=== PATIENT | female | born 1970 | race Caucasian/White ===

== ENCOUNTER 2020-12-10 10:11 | Emergency (ER) | payer OTHER ==
[~2020-12-10] VITALS: Ht 162.6 cm; Wt 113.6 kg
[2020-12-10 10:37] VITALS: BP 137/70
[2020-12-10 10:50] LABS: BASOPHILS % (AUTO) 0.3 % (0.0-2.0); EOSINOPHILS % (AUTO) 1.1 % (1.0-6.0); HEMATOCRIT 44.5 % (36-46); HEMOGLOBIN 14.9 g/dL (12.0-16.0); LYMPHOCYTES # (AUTO) 1.9 K/uL (1.0-4.8); LYMPHOCYTES % (AUTO) 20.3 % (22.0-44.0); MEAN CORPUSCULAR HEMOGLOBIN 28.5 pg (26.0-34.0); MEAN CORPUSCULAR HGB CONC 33.5 G/dL (31.0-37.0); MEAN CORPUSCULAR VOLUME 85 fL (80-100); MONOCYTES # (AUTO) 0.9 K/uL (0.1-1.0); MONOCYTES % (AUTO) 9.8 % (2.0-9.0); NEUTROPHILS # (AUTO) 6.3 K/uL (1.8-7.7); NEUTROPHILS % (AUTO) 68.5 % (40.0-70.0); PLATELET COUNT (AUTO) 246 K/uL (150-450); RED BLOOD CELL COUNT(AUTO) 5.23 MIL/uL (4.00-5.20); RED CELL DISTRIBUTION WIDTH 13.9 % (11.5-14.5)
[2020-12-10] MEDS ORDERED: LAMO100 PO (10:56)
[2020-12-10 11:07] LABS: ANION GAP 8 mmol/L (8-16); CALCIUM, TOTAL 9.2 mg/dL (8.8-10.5); CARBON DIOXIDE 29 mmol/L (22-29); CHLORIDE 104 mmol/L (98-107); CREATININE 0.91 mg/dL (0.60-1.30); GLOMERULAR FILTR. RATE CALC > 60 mL/min (>60); GLUCOSE,RANDOM 109 mg/dL (70-110); POTASSIUM 3.8 mmol/L (3.5-5.1); SODIUM SERUM 141 mmol/L (136-145); UREA NITROGEN, BLOOD 11 mg/dL (7-18)
[2020-12-10 11:19] LABS: B-TYPE NATRIURETIC PEPTIDE < 5 pg/mL (0-100)
[2020-12-10 11:20] LABS: ALANINE AMINOTRANSFERASE 36 U/L (12-78); ALBUMIN 4.2 g/dL (3.4-5.0); ALKALINE PHOSPHATASE 84 U/L (46-116); ASPARTATE AMINOTRANSFERASE 16 U/L (15-37); BILIRUBIN,TOTAL 0.4 mg/dL (0.1-1.0); CREATINE KINASE, TOTAL ONLY 53 U/L (26-192); HCG,QUANTITATIVE 1 mIU/mL (0-6); TOTAL PROTEIN, SERUM 7.8 g/dL (6.4-8.2)
[2020-12-10] MEDS ORDERED: ZIPR20CA2 PO (11:27)
== END 2020-12-10 12:24 | disposition home or self-care (01) ==
LOC: EMS 10:11
DX: F41.9 Anxiety disorder, unspecified (principal)
CPT/HCPCS: 71045; 80053; 80175; 82550; 83880; 84484; 84702; 85025; 93005; 99285; 36415-L1; 36415-TC

== ENCOUNTER 2021-01-02 13:50 | Emergency (ER) | payer OTHER ==
[~2021-01-02] VITALS: Ht 162.6 cm; Wt 114.0 kg
[~2021-01-02 13:50] MED LIST: LAMO100 PO; ZIPR20CA2 PO
[2021-01-02 14:57] VITALS: BP 138/84
[2021-01-02] MEDS ORDERED: LORazepam 1 MG TABLET PO ONE (15:15)
== END 2021-01-02 16:15 | disposition home or self-care (01) ==
LOC: EMS 13:52
DX: F41.9 Anxiety disorder, unspecified (principal); Z88.1 Allergy status to other antibiotic agents
CPT/HCPCS: 99283

== ENCOUNTER 2022-05-07 08:46 | Emergency (ER) | payer OTHER ==
[~2022-05-07] VITALS: Ht 162.6 cm; Wt 140.0 kg
[~2022-05-07 08:46] MED LIST changes: -ZIPR20CA2 PO; +ZIPR20CA38 PO
[2022-05-07 11:17] VITALS: BP 116/72
== END 2022-05-07 12:10 | disposition home or self-care (01) ==
LOC: EMS 08:50
DX: T74.21XA Adult sexual abuse, confirmed, initial encounter (principal); Y07.03 Male partner, perpetrator of maltreatment and neglect; F31.9 Bipolar disorder, unspecified; Z88.2 Allergy status to sulfonamides
CPT/HCPCS: 99284; Z7502